=== PATIENT | female | born 1970 | race African-American/Black ===

== ENCOUNTER 2024-08-21 14:01 | Outpatient (CLI) | payer OTHER | END 2024-08-21 14:02 | disposition home or self-care (01) | LOC: NAV RAD 14:01 | PROVIDERS: ATTEND Family Medicine | DX: M51.362 Other intervertebral disc degeneration, lumbar region with discogenic back pain and lower extremity pain (principal); M51.16 Intervertebral disc disorders with radiculopathy, lumbar region; M47.816 Spondylosis without myelopathy or radiculopathy, lumbar region | CPT/HCPCS: 72100 ==